=== PATIENT | female | born 2000 | race Two or more races ===

== ENCOUNTER 2018-01-07 17:10 | Emergency (ER) | payer OTHER ==
[~2018-01-07] VITALS: Ht 157.5 cm; Wt 45.4 kg
[2018-01-07] MEDS ORDERED: IV NS 0.9% 1,000 ML BAG IV ONE (17:30)
[2018-01-07] MEDS ORDERED: ACTIVATED CHARCOAL 25 GM/120 ML TUBE PO ONE (17:30)
--- NOTE | 2018-01-07 17:31 | NUR ---
SPOKE TO POISON CONTROL. PER POISON CONTROL RECOMMENDATION TO GIVE ACTIVATED CHARCOAL PER MD ORDER, AND TO MONITOR PT FOR 6 HOUR OBSERVATION. ENDY LOGGING TRUCK DRIVER AWARE.
[2018-01-07 17:42] LABS: BASOPHILS % (AUTO) 0.7 % (0.0-2.0); EOSINOPHILS % (AUTO) 0.3 % (0.0-6.0); HEMATOCRIT 35 % (33-45); HEMOGLOBIN 12.2 g/dL (11.5-14.8); LYMPHOCYTES # (AUTO) 2.3 /CMM (0.8-4.8); LYMPHOCYTES % (AUTO) 32.4 % (20.0-44.0); MEAN CORPUSCULAR HGB CONC 34 g/dl (31.0-36.0); MEAN CORPUSCULAR VOLUME 83 fL (82-100); MONOCYTES # (AUTO) 0.4 /CMM (0.1-1.30); NEUTROPHILS # (AUTO) 4.3 /CMM (1.8-8.9); NEUTROPHILS % (AUTO) 61.6 % (43.0-81.0); PLATELET COUNT (AUTO) 266 /CMM (150-450); RDW COEFFICIENT OF VARIATION 16.6 (11.5-15.0); RED BLOOD CELL COUNT(AUTO) 4.28 MIL/uL (4.0-5.2)
[2018-01-07 17:53] LABS: CALCIUM, SERUM 9.3 mg/dL (8.5-10.1); CARBON DIOXIDE 28 mmol/L (21-32); CHLORIDE 102 mmol/L (98-107); CREATININE 0.9 mg/dL (0.6-1.3); GLUCOSE 97 mg/dL (74-106); POTASSIUM 3.7 mmol/L (3.5-5.1); SODIUM SERUM 138 mmol/L (136-145); UREA NITROGEN, BLOOD 8 mg/dL (7-18)
[2018-01-07] MEDS ORDERED: ACTIVATED CHARCOAL 25 GM/120 ML TUBE ONE ×2 (18:09→18:30)
[2018-01-07 18:10] LABS: ALANINE AMINOTRANSFERASE 18 U/L (12-78); ALBUMIN 4.2 g/dL (3.4-5.0); ALCOHOL, BLOOD < 3 mg/dL (0-0); ALKALINE PHOSPHATASE 42 U/L (46-116); ASPARTATE AMINOTRANSFERASE 14 U/L (15-37); BILIRUBIN,DIRECT 0.1 mg/dL (0.0-0.2); BILIRUBIN,TOTAL 0.4 mg/dL (0.2-1.0); TOTAL PROTEIN, SERUM 7.5 g/dL (6.4-8.2)
[2018-01-07 18:12] LABS: ACETAMINOPHEN < 2 ug/ml (10-30); SALICYLATE 0.5 mg/dL (2.8-20.0)
[2018-01-07 18:14] LABS: APPEARANCE,URINE Clear (CLEAR); BILIRUBIN,URINE Negative (NEGATIVE); BLOOD, URINE Negative Ery/uL (NEGATIVE); COLOR,URINE Light yellow (YELLOW); KETONES,URINE Negative (NEGATIVE); LEUKOCYTE ESTERASE ,URINE Small (NEGATIVE); NITRITE, URINE Negative (NEGATIVE); PROTEIN,URINE Negative (NEGATIVE); UGLUCOSE Negative (NEGATIVE); UROBILINOGEN,URINE 0.2 EU/dL (0.2)
[2018-01-07 18:27] LABS: BACTERIA,URINE 1+ /HPF (None Seen); RBC,URINE NONE SEEN /HPF (0-2); SQUAMOUS EPITHELIAL CELL,UR Few /HPF (None Seen)
--- NOTE | 2018-01-07 19:07 | NUR ---
GAVE REPORT TO [facility] FOR LIZZIE
--- NOTE | 2018-01-07 19:08 | NUR ---
RECEIVED REPORT FROM GABINO HUFF FOR LIZZIE.
--- NOTE | 2018-01-07 20:05 | NUR ---
OCCUPATIONAL NURSE DEGRASSE BEDSIDE WITH PT AND FAMILY MEMBERS
--- NOTE | 2018-01-07 21:28 | NUR ---
Patient is resting comfortably in bed with eyes closed. Easily aroused. VSS
--- NOTE | 2018-01-07 22:51 | NUR ---
CALLED [facility] NITRATOR OPERATOR
[2018-01-08] MEDS ORDERED: CEPHALEXIN MONOHYDRATE 500 MG CAPSULE PO ONE (00:30)
--- NOTE | 2018-01-08 00:55 | NUR ---
PT REFUSED MEDS STATING "MY MOM HAS TOLD ME BAD THINGS ABOUT ANTIBIOTICS AND I DONT WANT TO TAKE IT". SCAFFOLD SETTER KARLSE MADE AWARE.
--- NOTE | 2018-01-08 02:33 | NUR ---
CALL FROM [facility] STEPHANIE. PT ACCEPTED BY DR SUMMERS. TO BE TRANSFERRED TO UNIT 1. # FOR REPORT [phone]
--- NOTE | 2018-01-08 02:34 | NUR ---
[facility] CALLED FOR TRANSPORT SCHEDULED FOR 0700
[2018-01-08 06:16] VITALS: BP 100/65
--- NOTE | 2018-01-08 07:04 | NUR ---
[facility] transport team bedside for pt transfer. report given to transfer team for amari.
--- NOTE | 2018-01-08 07:28 | NUR ---
Patient Tranfers to outside Facility Physician: DR SUMMERS Location: [facility]
--- NOTE | 2018-01-08 07:32 | NUR ---
REPORT GIVEN TO GABINO HUFF FOR LIZZIE.
--- NOTE | 2018-01-08 07:38 | NUR ---
[facility]
== END 2018-01-08 07:31 ==
LOC: ER 17:12
DX: T43.212A Poisoning by selective serotonin and norepinephrine reuptake inhibitors, intentional self-harm, initial encounter (principal); T43.011A Poisoning by tricyclic antidepressants, accidental (unintentional), initial encounter; N39.0 Urinary tract infection, site not specified; F50.00 Anorexia nervosa, unspecified; F41.9 Anxiety disorder, unspecified; F32.9 Major depressive disorder, single episode, unspecified; Y92.89 Other specified places as the place of occurrence of the external cause
CPT/HCPCS: 36415; 80048-TC; 80076-TC; 80305; 81000-TC; 84703-TC; 85025-TC; 87086-TC; A4606; G0480; J7030; J7040; Z7610